=== PATIENT | female | born 1940 | race Caucasian/White ===

== ENCOUNTER 2017-10-11 11:31 | Inpatient (IN) | payer MEDICARE, OTHER ==
[~2017-10-11] VITALS: Ht 162.6 cm; Wt 87.1 kg
[2017-10-11] MEDS ORDERED: TOBRAMYCIN IV (11:56)
[2017-10-11 12:12] LABS: ABG BASE EXCESS 1.2 mmol/L; ABG HCO3 25.8 mmol/L; ABG PCO2 41.2 mmHg (35.0-45.0); ABG PH 7.415 (7.350-7.450); ABG PO2 166.7 mmHg (75.0-100.0); ABG SITE RIGHT RADIAL; ABG TOTAL HEMOGLOBIN 10.7 G/dL (12.0-16.0); COHb 0.7 % (0.5-1.5); MetHb 0.4 % (0.0-1.5); O2Hb 98.5 % (94.0-97.0); VENT MODE VENT - A/C; VT, ABG 550 mL
[2017-10-11] MEDS ORDERED: ZINC220C8 GT (12:13)
[2017-10-11] MEDS ORDERED: NA P133E RC (12:13)
[2017-10-11] MEDS ORDERED: DOCU-141 GT (12:13)
[2017-10-11] MEDS ORDERED: ATOR20TA GT (12:13)
[2017-10-11] MEDS ORDERED: LORA-258 GT (12:13)
[2017-10-11] MEDS ORDERED: MULT-213 GT (12:13)
[2017-10-11] MEDS ORDERED: FERR220S6 GT (12:13)
[2017-10-11] MEDS ORDERED: LEVO25TA9 GT (12:13)
[2017-10-11] MEDS ORDERED: POTA10TA15 GT (12:13)
[2017-10-11] MEDS ORDERED: ACET-2154 GT ×2 (12:13)
[2017-10-11] MEDS ORDERED: PRIM250T GT (12:13)
[2017-10-11] MEDS ORDERED: ACET-2605 GT (12:13)
[2017-10-11] MEDS ORDERED: DULCOLAX PR (12:13)
[2017-10-11] MEDS ORDERED: APIX2.5T GT (12:13)
[2017-10-11] MEDS ORDERED: ALLO100T GT (12:13)
[2017-10-11] MEDS ORDERED: PRAM0.253 GT (12:13)
[2017-10-11] MEDS ORDERED: MAGN400O6 GT (12:13)
[2017-10-11] MEDS ORDERED: LOSA25TA13 GT (12:13)
[2017-10-11] MEDS ORDERED: CRAN3875 GT (12:13)
[2017-10-11] MEDS ORDERED: ASCO500C16 GT (12:13)
[2017-10-11] MEDS ORDERED: MONT10TA22 GT (12:13)
[2017-10-11] MEDS ORDERED: HYDR-4075 GT (12:13)
[2017-10-11] MEDS ORDERED: LAMO100T GT (12:13)
[2017-10-11] MEDS ORDERED: HYDR-3326 GT (12:13)
[2017-10-11] MEDS ORDERED: ASPI81TA31 GT (12:13)
[2017-10-11] MEDS ORDERED: ALBUTEROL SULFATE 2.5 MG/3 ML NEBU NEB ONE (12:45)
[2017-10-11 12:46] LABS: CARBON DIOXIDE 29 mmol/L (21-32); CHLORIDE 103 mmol/L (98-107); CREATININE 0.9 mg/dL (0.6-1.3); GLUCOSE 173 mg/dL (74-106); POTASSIUM 4.1 mmol/L (3.5-5.1); UREA NITROGEN, BLOOD 16 mg/dL (7-18)
[2017-10-11 12:56] LABS: ALANINE AMINOTRANSFERASE 20 U/L (14-59); ALKALINE PHOSPHATASE 216 U/L (50-136); ASPARTATE AMINOTRANSFERASE 17 U/L (15-37); BILIRUBIN,DIRECT 0.1 mg/dL (0.0-0.2); BILIRUBIN,TOTAL 0.2 mg/dL (0.2-1.0); TOTAL PROTEIN, SERUM 6.1 g/dL (6.4-8.2)
[2017-10-11] MEDS ORDERED: ALBUTEROL SULFATE 2.5 MG/3 ML NEBU ONE (13:10)
[2017-10-11 13:12] LABS: BASOPHILS # (AUTO) 0.1 K/uL (0.0-8.0); BASOPHILS % (AUTO) 0.4 % (0.0-2.0); EOSINOPHILS % (AUTO) 0.2 % (0.0-7.0); HEMATOCRIT 30.2 % (31.2-41.9); HEMOGLOBIN 9.7 g/dL (10.9-14.3); LYMPHOCYTES # (AUTO) 0.3 K/uL (20.0-40.0); LYMPHOCYTES % (AUTO) 2.1 % (20.5-51.5); MEAN CORPUSCULAR HEMOGLOBIN 31.1 uug (24.7-32.8); MEAN CORPUSCULAR HGB CONC 32 g/dL (32.3-35.6); MEAN CORPUSCULAR VOLUME 96.4 fL (75.5-95.3); MONOCYTES # (AUTO) 0.5 K/uL (2.0-10.0); MONOCYTES % (AUTO) 3.2 % (0.0-11.0); NEUTROPHILS # (AUTO) 13.6 K/uL (1.8-8.9); NEUTROPHILS % (AUTO) 94.1 % (38.5-71.5); PLATELET COUNT (AUTO) 342 K/uL (179-408); RED BLOOD CELL COUNT(AUTO) 3.14 MIL/uL (3.63-4.92); WHITE BLOOD COUNT (AUTO) 14.4 K/uL (3.8-11.8)
[2017-10-11 14:04] LABS: *BILIRUBIN,URIN NEGATIVE (NEGATIVE); *BLOOD, URINE NEGATIVE (NEGATIVE); *COLOR,URINE YELLOW (YELLOW); *KETONES,URINE TRACE (NEGATIVE); *PROTEIN,URINE 2+ (NEGATIVE); *UROBILINOGEN,URINE 0.2 E.U./dl (NORMAL); LEUKOCYTE ESTERASE ,URINE NEGATIVE (NEGATIVE); NITRITE, URINE NEGATIVE (NEGATIVE); PH,URINE 5.5 (5.0-8.0); UGLUCOSE NEGATIVE (NEGATIVE)
[2017-10-11 14:52] LABS: *CLARITY,URINE CLOUDY (CLEAR)
[2017-10-11 14:54] LABS: BACTERIA,URINE NONE SEEN /HPF (NONE SEEN); SQUAMOUS EPITHELIAL CELL,UR MANY /HPF (NONE SEEN)
[2017-10-11] MEDS ORDERED: IV NORMAL SALINE 500 ML BAG IV ONE (16:15)
[2017-10-11] MEDS ORDERED: FLEET ENEMA 133 ML BOTTLE RC PRN (18:15)
[2017-10-11] MEDS ORDERED: hydrALAZINE HCL 10 MG TABLET GT PRN (18:15)
[2017-10-11] MEDS ORDERED: MAGNESIUM HYDROXIDE 30 ML LIQUID UDC GT PRN (18:15)
[2017-10-11] MEDS ORDERED: ACETAMINOPHEN 325 MG TABLET GT PRN (18:15)
[2017-10-11] MEDS: PRAMIPEXOLE 0.25 MG TABLET GT SCH (21:00)
[2017-10-11] MEDS: PRIMIDONE 250 MG TABLET GT SCH (21:00)
[2017-10-11 23:00] VITALS: BP 143/99
[2017-10-11] MEDS: FUROSEMIDE 20 MG/2 ML VIAL IV SCH (23:29)
[2017-10-11] MEDS: LORAZEPAM 0.5 MG TABLET GT PRN (23:29)
[2017-10-11] MEDS: ATORVASTATIN 20 MG TABLET GT SCH (23:29)
[2017-10-11] MEDS: HYDROCODONE/APAP 5-325MG TABLET GT PRN (23:30)
[2017-10-11] MEDS ORDERED: LORAZEPAM 0.5 MG TABLET ONE (23:41)
[2017-10-11] MEDS ORDERED: HYDROCODONE/APAP 5-325MG TABLET ONE (23:41)
[2017-10-11] MEDS ORDERED: FUROSEMIDE 20 MG/2 ML VIAL ONE (23:43)
[2017-10-11] MEDS ORDERED: ATORVASTATIN 20 MG TABLET ONE (23:44)
[2017-10-12] VITALS (14 sets, daily range): BP systolic 77–151; BP diastolic 37–120
[2017-10-12 05:32] LABS: BASOPHILS % (AUTO) 0.5 % (0.0-2.0); EOSINOPHILS # (AUTO) 0.2 K/uL (0.0-0.7); HEMATOCRIT 28.2 % (31.2-41.9); HEMOGLOBIN 9.2 g/dL (10.9-14.3); LYMPHOCYTES # (AUTO) 0.9 K/uL (20.0-40.0); LYMPHOCYTES % (AUTO) 10.1 % (20.5-51.5); MEAN CORPUSCULAR HEMOGLOBIN 31.5 uug (24.7-32.8); MEAN CORPUSCULAR HGB CONC 33 g/dL (32.3-35.6); MEAN CORPUSCULAR VOLUME 96.5 fL (75.5-95.3); MONOCYTES # (AUTO) 0.5 K/uL (2.0-10.0); MONOCYTES % (AUTO) 6.2 % (0.0-11.0); NEUTROPHILS # (AUTO) 7.1 K/uL (1.8-8.9); NEUTROPHILS % (AUTO) 81.2 % (38.5-71.5); PLATELET COUNT (AUTO) 310 K/uL (179-408); RED BLOOD CELL COUNT(AUTO) 2.92 MIL/uL (3.63-4.92); WHITE BLOOD COUNT (AUTO) 8.8 K/uL (3.8-11.8)
[2017-10-12 05:38] LABS: IRON, SERUM 29 ug/dL (50-175)
[2017-10-12 06:03] LABS: ALANINE AMINOTRANSFERASE 17 U/L (14-59); ALKALINE PHOSPHATASE 188 U/L (50-136); ASPARTATE AMINOTRANSFERASE 20 U/L (15-37); BILIRUBIN,TOTAL 0.3 mg/dL (0.2-1.0); CARBON DIOXIDE 28 mmol/L (21-32); CHLORIDE 105 mmol/L (98-107); CHOLESTEROL 152 mg/dL (<200); CREATININE 0.6 mg/dL (0.6-1.3); GLUCOSE 87 mg/dL (74-106); HDL CHOLESTEROL 81 mg/dL (40-60); MAGNESIUM 1.8 mg/dL (1.8-2.4); PHOSPHOROUS 3.3 mg/dL (2.5-4.9); POTASSIUM 3.5 mmol/L (3.5-5.1); TOTAL PROTEIN, SERUM 5.8 g/dL (6.4-8.2); TRIGLYCERIDES 63 MG/DL (30-150); UREA NITROGEN, BLOOD 13 mg/dL (7-18)
[2017-10-12] MEDS: HYDROCODONE/APAP 5-325MG TABLET GT PRN ×4 (07:55→17:19)
[2017-10-12] MEDS ORDERED: DOCUSATE SODIUM 100 MG CAPSULE PO SCH (09:00)
[2017-10-12] MEDS ORDERED: Medication Not On Formulary EA (Apixaban (Eliquis) 2.5 MG) GT SCH (09:00)
[2017-10-12] MEDS ORDERED: Medication Not On Formulary EA (Multivitamins W-Minerals (Multivitamin With Minerals) 1 GT SCH (09:00)
[2017-10-12] MEDS ORDERED: Medication Not On Formulary EA (Ascorbic Acid (Vitamin C CAPSULE) 500 MG) GT SCH (09:00)
[2017-10-12] MEDS: DOCUSATE SODIUM 100 MG/10 ML LIQUID UDC GT SCH (09:26)
[2017-10-12] MEDS: ALLOPURINOL 100 MG TABLET GT SCH (09:26)
[2017-10-12] MEDS: LEVOTHYROXINE SODIUM 25 MCG TABLET GT SCH (09:26)
[2017-10-12] MEDS: MULTIVIT, IRON, MIN NO. 8, FA TABLET PO SCH (09:26)
[2017-10-12] MEDS: POTASSIUM CHLORIDE 20 MEQ POWDER PACKET GT SCH (09:26)
[2017-10-12] MEDS: ASCORBIC ACID 500 MG TABLET PO SCH (09:26)
[2017-10-12] MEDS: FERROUS SULFATE 300 MG/5 ML LIQUID UDC GT SCH (09:26)
[2017-10-12] MEDS: ZINC SULFATE 220 MG CAPSULE GT SCH (09:26)
[2017-10-12] MEDS: ASPIRIN 81 MG TAB.CHEW GT SCH (09:26)
[2017-10-12] MEDS: LAMOTRIGINE 100 MG TABLET GT SCH (09:39)
[2017-10-12] MEDS: LOSARTAN POTASSIUM 25 MG TABLET GT SCH (09:39)
[2017-10-12] MEDS: FUROSEMIDE 20 MG/2 ML VIAL IV SCH ×2 (10:37→21:42)
[2017-10-12] MEDS: ALBUTEROL SULFATE 2.5 MG/3 ML NEBU NEB PRN (11:20)
[2017-10-12] MEDS ORDERED: POTASSIUM CHLORIDE 20 MEQ POWDER PACKET GT ONE (12:00)
[2017-10-12] MEDS: APIXABAN 5 MG TABLET PO SCH ×2 (17:00→17:21)
[2017-10-12] MEDS: ACETAMINOPHEN 325 MG TABLET GT SCH (17:18)
[2017-10-12] MEDS: MONTELUKAST SODIUM 10 MG TABLET GT SCH (17:18)
[2017-10-12] MEDS: ATORVASTATIN 20 MG TABLET GT SCH (21:41)
[2017-10-12] MEDS: PRIMIDONE 250 MG TABLET GT SCH (21:41)
[2017-10-12] MEDS: PRAMIPEXOLE 0.25 MG TABLET GT SCH (21:41)
[2017-10-13] VITALS: BP 116/52
[2017-10-13 04:00] VITALS: BP 141/73
[2017-10-13] MEDS: LEVOTHYROXINE SODIUM 25 MCG TABLET GT SCH (06:37)
[2017-10-13 06:48] LABS: BASOPHILS % (AUTO) 0.3 % (0.0-2.0); EOSINOPHILS # (AUTO) 0.1 K/uL (0.0-0.7); EOSINOPHILS % (AUTO) 0.5 % (0.0-7.0); HEMATOCRIT 26.5 % (31.2-41.9); HEMOGLOBIN 8.6 g/dL (10.9-14.3); LYMPHOCYTES # (AUTO) 0.5 K/uL (20.0-40.0); LYMPHOCYTES % (AUTO) 3.3 % (20.5-51.5); MEAN CORPUSCULAR HEMOGLOBIN 31.2 uug (24.7-32.8); MEAN CORPUSCULAR HGB CONC 33 g/dL (32.3-35.6); MEAN CORPUSCULAR VOLUME 95.8 fL (75.5-95.3); MONOCYTES # (AUTO) 0.8 K/uL (2.0-10.0); MONOCYTES % (AUTO) 5.4 % (0.0-11.0); NEUTROPHILS # (AUTO) 13.7 K/uL (1.8-8.9); NEUTROPHILS % (AUTO) 90.5 % (38.5-71.5); PLATELET COUNT (AUTO) 311 K/uL (179-408); RED BLOOD CELL COUNT(AUTO) 2.76 MIL/uL (3.63-4.92); WHITE BLOOD COUNT (AUTO) 15.1 K/uL (3.8-11.8)
[2017-10-13 07:20] LABS: ALANINE AMINOTRANSFERASE 20 U/L (14-59); ALKALINE PHOSPHATASE 186 U/L (50-136); ASPARTATE AMINOTRANSFERASE 17 U/L (15-37); BILIRUBIN,TOTAL 0.4 mg/dL (0.2-1.0); CARBON DIOXIDE 27 mmol/L (21-32); CHLORIDE 105 mmol/L (98-107); CREATININE 0.6 mg/dL (0.6-1.3); GLUCOSE 80 mg/dL (74-106); MAGNESIUM 1.8 mg/dL (1.8-2.4); PHOSPHOROUS 2.9 mg/dL (2.5-4.9); POTASSIUM 3.7 mmol/L (3.5-5.1); TOTAL PROTEIN, SERUM 5.7 g/dL (6.4-8.2); UREA NITROGEN, BLOOD 13 mg/dL (7-18)
[2017-10-13] MEDS: ASPIRIN 81 MG TAB.CHEW GT SCH (08:13)
[2017-10-13] MEDS: ACETAMINOPHEN 325 MG TABLET GT SCH (08:13)
[2017-10-13] MEDS: MULTIVIT, IRON, MIN NO. 8, FA TABLET PO SCH (08:13)
[2017-10-13] MEDS: POTASSIUM CHLORIDE 20 MEQ POWDER PACKET GT SCH (08:13)
[2017-10-13] MEDS: FUROSEMIDE 20 MG/2 ML VIAL IV SCH ×2 (08:13→21:14)
[2017-10-13] MEDS: DOCUSATE SODIUM 100 MG/10 ML LIQUID UDC GT SCH (08:14)
[2017-10-13] MEDS: ZINC SULFATE 220 MG CAPSULE GT SCH (08:14)
[2017-10-13] MEDS: LAMOTRIGINE 100 MG TABLET GT SCH (08:14)
[2017-10-13] MEDS: FERROUS SULFATE 300 MG/5 ML LIQUID UDC GT SCH (08:14)
[2017-10-13] MEDS: LOSARTAN POTASSIUM 25 MG TABLET GT SCH (08:14)
[2017-10-13] MEDS: ALLOPURINOL 100 MG TABLET GT SCH (08:14)
[2017-10-13] MEDS: ASCORBIC ACID 500 MG TABLET PO SCH (08:14)
[2017-10-13] MEDS: APIXABAN 5 MG TABLET PO SCH (08:16)
[2017-10-13] MEDS: FIBERSOURCE HN 1000ML LIQUID GT PRN (10:03)
[2017-10-13 11:35] VITALS: BP 145/87
[2017-10-13] MEDS: HYDROCODONE/APAP 5-325MG TABLET GT PRN ×2 (12:18→21:15)
[2017-10-13 15:22] VITALS: BP 126/75
[2017-10-13] MEDS: MONTELUKAST SODIUM 10 MG TABLET GT SCH (16:25)
[2017-10-13 20:00] VITALS: BP 102/51
[2017-10-13] MEDS: ATORVASTATIN 20 MG TABLET GT SCH (21:16)
[2017-10-13] MEDS: PRAMIPEXOLE 0.25 MG TABLET GT SCH (21:16)
[2017-10-13] MEDS: PRIMIDONE 250 MG TABLET GT SCH (21:16)
[2017-10-13] MEDS: MUPIROCIN 2% OINT 22 GM TUBE NS SCH (21:40)
[2017-10-13] MEDS: LORAZEPAM 0.5 MG TABLET GT PRN (22:28)
[2017-10-14 00:52] VITALS: BP 99/48
[2017-10-14 04:37] VITALS: BP 94/50
[2017-10-14] MEDS: HYDROCODONE/APAP 5-325MG TABLET GT PRN (05:53)
[2017-10-14] MEDS: LEVOTHYROXINE SODIUM 25 MCG TABLET GT SCH (06:35)
[2017-10-14 07:12] VITALS: BP 110/48
[2017-10-14 07:35] LABS: BASOPHILS % (AUTO) 0.4 % (0.0-2.0); EOSINOPHILS # (AUTO) 0.2 K/uL (0.0-0.7); EOSINOPHILS % (AUTO) 1.6 % (0.0-7.0); HEMATOCRIT 26.1 % (31.2-41.9); HEMOGLOBIN 8.6 g/dL (10.9-14.3); LYMPHOCYTES # (AUTO) 0.7 K/uL (20.0-40.0); LYMPHOCYTES % (AUTO) 5.3 % (20.5-51.5); MEAN CORPUSCULAR HEMOGLOBIN 31.5 uug (24.7-32.8); MEAN CORPUSCULAR HGB CONC 33 g/dL (32.3-35.6); MEAN CORPUSCULAR VOLUME 95.5 fL (75.5-95.3); MONOCYTES % (AUTO) 7.8 % (0.0-11.0); NEUTROPHILS # (AUTO) 10.6 K/uL (1.8-8.9); NEUTROPHILS % (AUTO) 84.9 % (38.5-71.5); PLATELET COUNT (AUTO) 310 K/uL (179-408); RED BLOOD CELL COUNT(AUTO) 2.73 MIL/uL (3.63-4.92); WHITE BLOOD COUNT (AUTO) 12.5 K/uL (3.8-11.8)
[2017-10-14 07:39] LABS: CARBON DIOXIDE 33 mmol/L (21-32); CHLORIDE 102 mmol/L (98-107); CREATININE 0.9 mg/dL (0.6-1.3); GLUCOSE 140 mg/dL (74-106); MAGNESIUM 1.9 mg/dL (1.8-2.4); PHOSPHOROUS 2.8 mg/dL (2.5-4.9); POTASSIUM 3.5 mmol/L (3.5-5.1); UREA NITROGEN, BLOOD 19 mg/dL (7-18)
[2017-10-14] MEDS: FERROUS SULFATE 300 MG/5 ML LIQUID UDC GT SCH (08:29)
[2017-10-14] MEDS: ASCORBIC ACID 500 MG TABLET PO SCH (08:30)
[2017-10-14] MEDS: POTASSIUM CHLORIDE 20 MEQ POWDER PACKET GT SCH (08:30)
[2017-10-14] MEDS: FUROSEMIDE 20 MG/2 ML VIAL IV SCH (08:30)
[2017-10-14] MEDS: LAMOTRIGINE 100 MG TABLET GT SCH (08:30)
[2017-10-14] MEDS: MULTIVIT, IRON, MIN NO. 8, FA TABLET PO SCH (08:30)
[2017-10-14] MEDS: DOCUSATE SODIUM 100 MG/10 ML LIQUID UDC GT SCH (08:30)
[2017-10-14] MEDS: ACETAMINOPHEN 325 MG TABLET GT SCH (08:31)
[2017-10-14] MEDS: ZINC SULFATE 220 MG CAPSULE GT SCH (08:31)
[2017-10-14] MEDS: LOSARTAN POTASSIUM 25 MG TABLET GT SCH (08:31)
[2017-10-14] MEDS: ALLOPURINOL 100 MG TABLET GT SCH (08:31)
[2017-10-14] MEDS: MUPIROCIN 2% OINT 22 GM TUBE NS SCH ×2 (08:33→21:00)
[2017-10-14 11:07] VITALS: BP 102/44
[2017-10-14 15:09] VITALS: BP 114/46
[2017-10-14] MEDS: MONTELUKAST SODIUM 10 MG TABLET GT SCH (17:15)
[2017-10-14] MEDS: FIBERSOURCE HN 1000ML LIQUID GT PRN (19:00)
[2017-10-14 20:00] VITALS: BP 119/51
[2017-10-14] MEDS: PRIMIDONE 250 MG TABLET GT SCH (21:00)
[2017-10-14] MEDS: ACETAMINOPHEN 650 MG/20.3 ML LIQUID UDC PO PRN (21:00)
[2017-10-14] MEDS: ATORVASTATIN 20 MG TABLET GT SCH (21:00)
[2017-10-14] MEDS: PRAMIPEXOLE 0.25 MG TABLET GT SCH (21:00)
[2017-10-15] VITALS: BP 103/47
[2017-10-15] MEDS: HYDROCODONE/APAP 5-325MG TABLET GT PRN ×2 (01:40→14:30)
[2017-10-15] MEDS: LORAZEPAM 0.5 MG TABLET GT PRN (01:40)
[2017-10-15 04:00] VITALS: BP 113/43
[2017-10-15] MEDS: LEVOTHYROXINE SODIUM 25 MCG TABLET GT SCH (06:55)
[2017-10-15 08:00] VITALS: BP 110/53
[2017-10-15] MEDS: DOCUSATE SODIUM 100 MG/10 ML LIQUID UDC GT SCH (09:14)
[2017-10-15] MEDS: POTASSIUM CHLORIDE 20 MEQ POWDER PACKET GT SCH (09:15)
[2017-10-15] MEDS: ALLOPURINOL 100 MG TABLET GT SCH (09:15)
[2017-10-15] MEDS: ASCORBIC ACID 500 MG TABLET PO SCH (09:15)
[2017-10-15] MEDS: LAMOTRIGINE 100 MG TABLET GT SCH (09:15)
[2017-10-15] MEDS: LOSARTAN POTASSIUM 25 MG TABLET GT SCH (09:15)
[2017-10-15] MEDS: ZINC SULFATE 220 MG CAPSULE GT SCH (09:15)
[2017-10-15] MEDS: ACETAMINOPHEN 325 MG TABLET GT SCH (09:15)
[2017-10-15] MEDS: MULTIVIT, IRON, MIN NO. 8, FA TABLET PO SCH (09:15)
[2017-10-15] MEDS: FERROUS SULFATE 300 MG/5 ML LIQUID UDC GT SCH (09:15)
[2017-10-15] MEDS: MUPIROCIN 2% OINT 22 GM TUBE NS SCH ×2 (10:02→21:54)
[2017-10-15 11:05] VITALS: BP 109/61
[2017-10-15 12:48] LABS: BASOPHILS % (AUTO) 0.5 % (0.0-2.0); EOSINOPHILS # (AUTO) 0.1 K/uL (0.0-0.7); EOSINOPHILS % (AUTO) 1.6 % (0.0-7.0); HEMATOCRIT 24.2 % (31.2-41.9); HEMOGLOBIN 8.2 g/dL (10.9-14.3); LYMPHOCYTES # (AUTO) 0.4 K/uL (20.0-40.0); LYMPHOCYTES % (AUTO) 4.3 % (20.5-51.5); MEAN CORPUSCULAR HEMOGLOBIN 32.3 uug (24.7-32.8); MEAN CORPUSCULAR HGB CONC 34 g/dL (32.3-35.6); MEAN CORPUSCULAR VOLUME 95.9 fL (75.5-95.3); MONOCYTES # (AUTO) 0.6 K/uL (2.0-10.0); MONOCYTES % (AUTO) 6.9 % (0.0-11.0); NEUTROPHILS # (AUTO) 7.2 K/uL (1.8-8.9); NEUTROPHILS % (AUTO) 86.7 % (38.5-71.5); PLATELET COUNT (AUTO) 304 K/uL (179-408); RED BLOOD CELL COUNT(AUTO) 2.52 MIL/uL (3.63-4.92); WHITE BLOOD COUNT (AUTO) 8.4 K/uL (3.8-11.8)
[2017-10-15 15:18] VITALS: BP 94/74
[2017-10-15] MEDS: MEROPENEM 1 G in IV NORMAL SALINE 100 ML IV SCH ×2 (16:01→21:55)
[2017-10-15] MEDS: MONTELUKAST SODIUM 10 MG TABLET GT SCH (17:29)
[2017-10-15 19:39] LABS: *BILIRUBIN,URIN NEGATIVE (NEGATIVE); *BLOOD, URINE 2+ (NEGATIVE); *CLARITY,URINE CLOUDY (CLEAR); *COLOR,URINE YELLOW (YELLOW); *KETONES,URINE TRACE (NEGATIVE); *PROTEIN,URINE 2+ (NEGATIVE); LEUKOCYTE ESTERASE ,URINE 2+ (NEGATIVE); NITRITE, URINE NEGATIVE (NEGATIVE); PH,URINE 7.5 (5.0-8.0); UGLUCOSE NEGATIVE (NEGATIVE)
[2017-10-15 20:00] VITALS: BP 95/45
[2017-10-15] MEDS: PRIMIDONE 250 MG TABLET GT SCH (21:54)
[2017-10-15] MEDS: ATORVASTATIN 20 MG TABLET GT SCH (21:54)
[2017-10-15] MEDS: PRAMIPEXOLE 0.25 MG TABLET GT SCH (21:54)
[2017-10-15] MEDS: ALBUTEROL SULFATE 2.5 MG/3 ML NEBU NEB PRN (22:00)
[2017-10-15 22:20] LABS: RBC,URINE 20-50 /HPF (0-3)
[2017-10-15 22:21] LABS: BACTERIA,URINE MANY /HPF (NONE SEEN); SQUAMOUS EPITHELIAL CELL,UR MODERATE /HPF (NONE SEEN); WBC,URINE 80-100 /HPF (0-3)
[2017-10-16] VITALS: BP 78/33
[2017-10-16] MEDS ORDERED: IV NORMAL SALINE 500 ML IV ONE (01:45)
[2017-10-16 04:00] VITALS: BP 88/40
[2017-10-16] MEDS: LORAZEPAM 0.5 MG TABLET GT PRN (05:40)
[2017-10-16] MEDS: LEVOTHYROXINE SODIUM 25 MCG TABLET GT SCH (05:40)
[2017-10-16] MEDS: MEROPENEM 1 G in IV NORMAL SALINE 100 ML IV SCH ×3 (05:40→21:12)
[2017-10-16 06:39] LABS: CARBON DIOXIDE 30 mmol/L (21-32); CHLORIDE 101 mmol/L (98-107); CREATININE 0.9 mg/dL (0.6-1.3); GLUCOSE 115 mg/dL (74-106); PHOSPHOROUS 3.5 mg/dL (2.5-4.9); POTASSIUM 3.8 mmol/L (3.5-5.1); UREA NITROGEN, BLOOD 21 mg/dL (7-18)
[2017-10-16 06:54] LABS: BASOPHILS # (AUTO) 0.1 K/uL (0.0-8.0); BASOPHILS % (AUTO) 0.9 % (0.0-2.0); EOSINOPHILS # (AUTO) 0.3 K/uL (0.0-0.7); EOSINOPHILS % (AUTO) 3.6 % (0.0-7.0); HEMATOCRIT 27.3 % (31.2-41.9); HEMOGLOBIN 8.9 g/dL (10.9-14.3); LYMPHOCYTES # (AUTO) 0.8 K/uL (20.0-40.0); LYMPHOCYTES % (AUTO) 11.5 % (20.5-51.5); MEAN CORPUSCULAR HEMOGLOBIN 31.6 uug (24.7-32.8); MEAN CORPUSCULAR HGB CONC 33 g/dL (32.3-35.6); MEAN CORPUSCULAR VOLUME 96.5 fL (75.5-95.3); MONOCYTES # (AUTO) 0.9 K/uL (2.0-10.0); MONOCYTES % (AUTO) 11.9 % (0.0-11.0); NEUTROPHILS # (AUTO) 5.2 K/uL (1.8-8.9); NEUTROPHILS % (AUTO) 72.1 % (38.5-71.5); PLATELET COUNT (AUTO) 339 K/uL (179-408); RED BLOOD CELL COUNT(AUTO) 2.83 MIL/uL (3.63-4.92); WHITE BLOOD COUNT (AUTO) 7.3 K/uL (3.8-11.8)
[2017-10-16] MEDS: LOSARTAN POTASSIUM 25 MG TABLET GT SCH (08:44)
[2017-10-16] MEDS: ACETAMINOPHEN 325 MG TABLET GT SCH (08:45)
[2017-10-16] MEDS: DOCUSATE SODIUM 100 MG/10 ML LIQUID UDC GT SCH (09:01)
[2017-10-16] MEDS: LAMOTRIGINE 100 MG TABLET GT SCH (09:01)
[2017-10-16] MEDS: ASCORBIC ACID 500 MG TABLET PO SCH (09:01)
[2017-10-16] MEDS: FERROUS SULFATE 300 MG/5 ML LIQUID UDC GT SCH (09:01)
[2017-10-16] MEDS: ZINC SULFATE 220 MG CAPSULE GT SCH (09:01)
[2017-10-16] MEDS: MUPIROCIN 2% OINT 22 GM TUBE NS SCH ×2 (09:01→20:27)
[2017-10-16] MEDS: POTASSIUM CHLORIDE 20 MEQ POWDER PACKET GT SCH (09:01)
[2017-10-16] MEDS: ALLOPURINOL 100 MG TABLET GT SCH (09:02)
[2017-10-16] MEDS: MULTIVIT, IRON, MIN NO. 8, FA TABLET PO SCH (09:02)
[2017-10-16 11:05] VITALS: BP 87/45
[2017-10-16] MEDS ORDERED: diphenhydrAMINE 25 MG/10 ML UDC GT ONE (13:00)
[2017-10-16] MEDS: FIBERSOURCE HN 1000ML LIQUID GT PRN (14:26)
[2017-10-16 15:14] VITALS: BP 96/44
[2017-10-16] MEDS: MONTELUKAST SODIUM 10 MG TABLET GT SCH (18:30)
[2017-10-16 20:00] VITALS: BP_SYST 136; BP_SYST 96; BP_DIAS 31; BP_DIAS 52
[2017-10-16] MEDS: PRAMIPEXOLE 0.25 MG TABLET GT SCH (20:51)
[2017-10-16] MEDS: ATORVASTATIN 20 MG TABLET GT SCH (20:51)
[2017-10-16] MEDS: PRIMIDONE 250 MG TABLET GT SCH (20:52)
[2017-10-16] MEDS: ACETAMINOPHEN 650 MG/20.3 ML LIQUID UDC PO PRN (20:55)
[2017-10-17] VITALS: BP_SYST 136; BP_SYST 96; BP_DIAS 31; BP_DIAS 52
[2017-10-17] MEDS: IV NS 1000 ML 1,000 ML IV PRN ×2 (01:35→15:11)
[2017-10-17 05:00] VITALS: BP 99/46
[2017-10-17] MEDS: MEROPENEM 1 G in IV NORMAL SALINE 100 ML IV SCH ×3 (06:41→21:57)
[2017-10-17] MEDS: LEVOTHYROXINE SODIUM 25 MCG TABLET GT SCH (06:41)
[2017-10-17 07:30] LABS: BASOPHILS # (AUTO) 0.1 K/uL (0.0-8.0); BASOPHILS % (AUTO) 1.3 % (0.0-2.0); CARBON DIOXIDE 30 mmol/L (21-32); CHLORIDE 102 mmol/L (98-107); CREATININE 0.7 mg/dL (0.6-1.3); EOSINOPHILS # (AUTO) 0.3 K/uL (0.0-0.7); EOSINOPHILS % (AUTO) 6.2 % (0.0-7.0); GLUCOSE 116 mg/dL (74-106); HEMATOCRIT 25.8 % (31.2-41.9); HEMOGLOBIN 8.4 g/dL (10.9-14.3); LYMPHOCYTES # (AUTO) 0.6 K/uL (20.0-40.0); LYMPHOCYTES % (AUTO) 11.1 % (20.5-51.5); MAGNESIUM 2.2 mg/dL (1.8-2.4); MEAN CORPUSCULAR HEMOGLOBIN 31.4 uug (24.7-32.8); MEAN CORPUSCULAR HGB CONC 33 g/dL (32.3-35.6); MEAN CORPUSCULAR VOLUME 96.4 fL (75.5-95.3); MONOCYTES # (AUTO) 0.7 K/uL (2.0-10.0); MONOCYTES % (AUTO) 12.7 % (0.0-11.0); NEUTROPHILS # (AUTO) 3.9 K/uL (1.8-8.9); NEUTROPHILS % (AUTO) 68.7 % (38.5-71.5); PHOSPHOROUS 3.1 mg/dL (2.5-4.9); PLATELET COUNT (AUTO) 325 K/uL (179-408); POTASSIUM 3.6 mmol/L (3.5-5.1); RED BLOOD CELL COUNT(AUTO) 2.68 MIL/uL (3.63-4.92); UREA NITROGEN, BLOOD 19 mg/dL (7-18); WHITE BLOOD COUNT (AUTO) 5.6 K/uL (3.8-11.8)
[2017-10-17 08:00] VITALS: BP 101/39
[2017-10-17] MEDS: FERROUS SULFATE 300 MG/5 ML LIQUID UDC GT SCH (09:13)
[2017-10-17] MEDS: DOCUSATE SODIUM 100 MG/10 ML LIQUID UDC GT SCH (09:13)
[2017-10-17] MEDS: ASCORBIC ACID 500 MG TABLET PO SCH (09:13)
[2017-10-17] MEDS: POTASSIUM CHLORIDE 20 MEQ POWDER PACKET GT SCH (09:13)
[2017-10-17] MEDS: ZINC SULFATE 220 MG CAPSULE GT SCH (09:13)
[2017-10-17] MEDS: ALLOPURINOL 100 MG TABLET GT SCH (09:14)
[2017-10-17] MEDS: LAMOTRIGINE 100 MG TABLET GT SCH (09:14)
[2017-10-17] MEDS: ACETAMINOPHEN 325 MG TABLET GT SCH (09:14)
[2017-10-17] MEDS: MUPIROCIN 2% OINT 22 GM TUBE NS SCH ×2 (09:14→21:07)
[2017-10-17] MEDS: MULTIVIT, IRON, MIN NO. 8, FA TABLET PO SCH (09:14)
[2017-10-17 16:00] VITALS: BP 174/88
[2017-10-17] MEDS: MONTELUKAST SODIUM 10 MG TABLET GT SCH (17:06)
[2017-10-17 20:00] VITALS: BP 150/69
[2017-10-17] MEDS: ATORVASTATIN 20 MG TABLET GT SCH (21:06)
[2017-10-17] MEDS: PRIMIDONE 250 MG TABLET GT SCH (21:06)
[2017-10-17] MEDS: LORAZEPAM 0.5 MG TABLET GT PRN (21:06)
[2017-10-17] MEDS: PRAMIPEXOLE 0.25 MG TABLET GT SCH (21:06)
[2017-10-17] MEDS: ALBUTEROL SULFATE 2.5 MG/3 ML NEBU NEB PRN (21:17)
[2017-10-18] VITALS: BP 97/82
[2017-10-18] MEDS: HYDROCODONE/APAP 5-325MG TABLET GT PRN
[2017-10-18] MEDS: ALBUTEROL SULFATE 2.5 MG/3 ML NEBU NEB PRN ×4 (03:03→19:46)
[2017-10-18 04:00] VITALS: BP 103/51
[2017-10-18] MEDS: IV NS 1000 ML 1,000 ML IV PRN ×2 (05:29→21:15)
[2017-10-18] MEDS: MEROPENEM 1 G in IV NORMAL SALINE 100 ML IV SCH ×3 (05:34→21:16)
[2017-10-18] MEDS: LEVOTHYROXINE SODIUM 25 MCG TABLET GT SCH (06:18)
[2017-10-18 07:37] VITALS: BP 131/78
[2017-10-18] MEDS: DOCUSATE SODIUM 100 MG/10 ML LIQUID UDC GT SCH (09:30)
[2017-10-18] MEDS: POTASSIUM CHLORIDE 20 MEQ POWDER PACKET GT SCH (09:31)
[2017-10-18] MEDS: ASCORBIC ACID 500 MG TABLET PO SCH (09:31)
[2017-10-18] MEDS: ZINC SULFATE 220 MG CAPSULE GT SCH (09:31)
[2017-10-18] MEDS: LAMOTRIGINE 100 MG TABLET GT SCH (09:31)
[2017-10-18] MEDS: ACETAMINOPHEN 325 MG TABLET GT SCH (09:31)
[2017-10-18] MEDS: MULTIVIT, IRON, MIN NO. 8, FA TABLET PO SCH (09:31)
[2017-10-18] MEDS: ALLOPURINOL 100 MG TABLET GT SCH (09:31)
[2017-10-18] MEDS: FERROUS SULFATE 300 MG/5 ML LIQUID UDC GT SCH (09:31)
[2017-10-18] MEDS: MUPIROCIN 2% OINT 22 GM TUBE NS SCH ×2 (09:33→21:00)
[2017-10-18 11:35] VITALS: BP 114/43
[2017-10-18] MEDS: FUROSEMIDE 40 MG/4 ML VIAL IV SCH (16:00)
[2017-10-18 16:05] VITALS: BP 150/73
[2017-10-18] MEDS: MONTELUKAST SODIUM 10 MG TABLET GT SCH (18:00)
[2017-10-18 19:00] VITALS: BP 133/41
[2017-10-18] MEDS: ATORVASTATIN 20 MG TABLET GT SCH (21:00)
[2017-10-18] MEDS: PRIMIDONE 250 MG TABLET GT SCH (21:00)
[2017-10-18] MEDS: PRAMIPEXOLE 0.25 MG TABLET GT SCH (21:13)
[2017-10-18] MEDS: LORAZEPAM 0.5 MG TABLET GT PRN (23:49)
[2017-10-18] MEDS: ACETAMINOPHEN 650 MG/20.3 ML LIQUID UDC PO PRN (23:50)
[2017-10-18] MEDS: FIBERSOURCE HN 1000ML LIQUID GT PRN (23:55)
[2017-10-19] VITALS: BP 107/49
[2017-10-19] MEDS: ALBUTEROL SULFATE 2.5 MG/3 ML NEBU NEB PRN (01:03)
[2017-10-19 04:00] VITALS: BP 101/37
[2017-10-19] MEDS: MEROPENEM 1 G in IV NORMAL SALINE 100 ML IV SCH ×3 (05:46→22:03)
[2017-10-19 07:03] LABS: CARBON DIOXIDE 31 mmol/L (21-32); CHLORIDE 103 mmol/L (98-107); CREATININE 0.7 mg/dL (0.6-1.3); GLUCOSE 125 mg/dL (74-106); MAGNESIUM 2.1 mg/dL (1.8-2.4); POTASSIUM 3.4 mmol/L (3.5-5.1); UREA NITROGEN, BLOOD 12 mg/dL (7-18)
[2017-10-19 07:05] LABS: BASOPHILS % (AUTO) 0.7 % (0.0-2.0); EOSINOPHILS # (AUTO) 0.2 K/uL (0.0-0.7); EOSINOPHILS % (AUTO) 2.9 % (0.0-7.0); HEMATOCRIT 23.5 % (31.2-41.9); HEMOGLOBIN 7.8 g/dL (10.9-14.3); LYMPHOCYTES # (AUTO) 0.5 K/uL (20.0-40.0); LYMPHOCYTES % (AUTO) 9.8 % (20.5-51.5); MEAN CORPUSCULAR HEMOGLOBIN 31.8 uug (24.7-32.8); MEAN CORPUSCULAR HGB CONC 33 g/dL (32.3-35.6); MONOCYTES # (AUTO) 0.6 K/uL (2.0-10.0); MONOCYTES % (AUTO) 12.6 % (0.0-11.0); NEUTROPHILS # (AUTO) 3.8 K/uL (1.8-8.9); PLATELET COUNT (AUTO) 282 K/uL (179-408); WHITE BLOOD COUNT (AUTO) 5.2 K/uL (3.8-11.8)
[2017-10-19] MEDS: LEVOTHYROXINE SODIUM 25 MCG TABLET GT SCH (07:05)
[2017-10-19 07:15] LABS: RED BLOOD CELL COUNT(AUTO) 2.44 MIL/uL (3.63-4.92)
[2017-10-19] MEDS: LAMOTRIGINE 100 MG TABLET GT SCH (08:48)
[2017-10-19] MEDS: MULTIVIT, IRON, MIN NO. 8, FA TABLET PO SCH (08:48)
[2017-10-19] MEDS: ASCORBIC ACID 500 MG TABLET PO SCH (08:48)
[2017-10-19] MEDS: ACETAMINOPHEN 325 MG TABLET GT SCH (08:48)
[2017-10-19] MEDS: POTASSIUM CHLORIDE 20 MEQ POWDER PACKET GT SCH (08:48)
[2017-10-19] MEDS: MUPIROCIN 2% OINT 22 GM TUBE NS SCH ×2 (08:49→20:55)
[2017-10-19] MEDS: ALLOPURINOL 100 MG TABLET GT SCH (08:49)
[2017-10-19] MEDS: FUROSEMIDE 40 MG/4 ML VIAL IV SCH (08:49)
[2017-10-19] MEDS: FERROUS SULFATE 300 MG/5 ML LIQUID UDC GT SCH (08:49)
[2017-10-19] MEDS: ZINC SULFATE 220 MG CAPSULE GT SCH (08:49)
[2017-10-19] MEDS: DOCUSATE SODIUM 100 MG/10 ML LIQUID UDC GT SCH (08:49)
[2017-10-19 11:14] VITALS: BP 113/54
[2017-10-19] MEDS: MICAFUNGIN SODIUM 100 MG in IV NORMAL SALINE 100 ML IV SCH (13:02)
[2017-10-19] MEDS: HYDROCODONE/APAP 5-325MG TABLET GT PRN ×2 (13:37→20:49)
[2017-10-19] MEDS ORDERED: POTASSIUM CHLORIDE 20 MEQ POWDER PACKET GT ONE (14:00)
[2017-10-19 15:31] VITALS: BP 97/52
[2017-10-19] MEDS: IV NS 1000 ML 1,000 ML IV PRN (16:36)
[2017-10-19] MEDS: MONTELUKAST SODIUM 10 MG TABLET GT SCH (17:00)
[2017-10-19 19:00] VITALS: BP 142/79
[2017-10-19] MEDS: ATORVASTATIN 20 MG TABLET GT SCH (20:48)
[2017-10-19] MEDS: PRAMIPEXOLE 0.25 MG TABLET GT SCH (20:48)
[2017-10-19] MEDS: PRIMIDONE 250 MG TABLET GT SCH (20:54)
[2017-10-19] MEDS ORDERED: NEUTRA PHOS PACKET PO ONE (22:15)
[2017-10-20] MEDS: LORAZEPAM 0.5 MG TABLET GT PRN ×2 (02:05→21:33)
[2017-10-20] MEDS: ACETAMINOPHEN 650 MG/20.3 ML LIQUID UDC PO PRN ×2 (02:07→21:33)
[2017-10-20] MEDS: ALBUTEROL SULFATE 2.5 MG/3 ML NEBU NEB PRN ×4 (02:22→23:37)
[2017-10-20 04:00] VITALS: BP 100/46
[2017-10-20] MEDS: MEROPENEM 1 G in IV NORMAL SALINE 100 ML IV SCH ×3 (05:22→21:33)
[2017-10-20 08:55] LABS: BASOPHILS # (AUTO) 0.1 K/uL (0.0-8.0); BASOPHILS % (AUTO) 0.7 % (0.0-2.0); EOSINOPHILS # (AUTO) 0.3 K/uL (0.0-0.7); EOSINOPHILS % (AUTO) 3.3 % (0.0-7.0); HEMATOCRIT 25.2 % (31.2-41.9); HEMOGLOBIN 8.4 g/dL (10.9-14.3); LYMPHOCYTES % (AUTO) 11.8 % (20.5-51.5); MEAN CORPUSCULAR HEMOGLOBIN 31.7 uug (24.7-32.8); MEAN CORPUSCULAR HGB CONC 33 g/dL (32.3-35.6); MEAN CORPUSCULAR VOLUME 94.9 fL (75.5-95.3); MONOCYTES # (AUTO) 0.8 K/uL (2.0-10.0); MONOCYTES % (AUTO) 10.1 % (0.0-11.0); NEUTROPHILS # (AUTO) 6.2 K/uL (1.8-8.9); NEUTROPHILS % (AUTO) 74.1 % (38.5-71.5); PLATELET COUNT (AUTO) 321 K/uL (179-408); RED BLOOD CELL COUNT(AUTO) 2.65 MIL/uL (3.63-4.92); WHITE BLOOD COUNT (AUTO) 8.3 K/uL (3.8-11.8)
[2017-10-20 09:17] LABS: CARBON DIOXIDE 30 mmol/L (21-32); CHLORIDE 101 mmol/L (98-107); CREATININE 0.7 mg/dL (0.6-1.3); GLUCOSE 109 mg/dL (74-106); PHOSPHOROUS 2.3 mg/dL (2.5-4.9); POTASSIUM 3.5 mmol/L (3.5-5.1); UREA NITROGEN, BLOOD 14 mg/dL (7-18)
[2017-10-20] MEDS: LEVOTHYROXINE SODIUM 25 MCG TABLET GT SCH (10:40)
[2017-10-20] MEDS: DOCUSATE SODIUM 100 MG/10 ML LIQUID UDC GT SCH (10:41)
[2017-10-20] MEDS: FERROUS SULFATE 300 MG/5 ML LIQUID UDC GT SCH (10:41)
[2017-10-20] MEDS: POTASSIUM CHLORIDE 20 MEQ POWDER PACKET GT SCH (10:42)
[2017-10-20] MEDS: ACETAMINOPHEN 325 MG TABLET GT SCH (10:42)
[2017-10-20] MEDS: LAMOTRIGINE 100 MG TABLET GT SCH (10:42)
[2017-10-20] MEDS: ALLOPURINOL 100 MG TABLET GT SCH (10:43)
[2017-10-20] MEDS: ZINC SULFATE 220 MG CAPSULE GT SCH (10:43)
[2017-10-20] MEDS: FUROSEMIDE 40 MG/4 ML VIAL IV SCH (10:43)
[2017-10-20] MEDS: MUPIROCIN 2% OINT 22 GM TUBE NS SCH (10:44)
[2017-10-20] MEDS: MULTIVIT, IRON, MIN NO. 8, FA TABLET PO SCH (10:44)
[2017-10-20] MEDS: ASCORBIC ACID 500 MG TABLET PO SCH (10:45)
[2017-10-20 11:03] VITALS: BP 141/62
[2017-10-20] MEDS ORDERED: POTASSIUM PHOSPHATE MM 7.5 MMOL in IV DEXTROSE 5% 100 ML IV ONE (11:45)
[2017-10-20] MEDS: MICAFUNGIN SODIUM 100 MG in IV NORMAL SALINE 100 ML IV SCH (13:18)
[2017-10-20] MEDS: HYDROCODONE/APAP 5-325MG TABLET GT PRN (13:18)
[2017-10-20] MEDS: IV NS 1000 ML 1,000 ML IV PRN (15:00)
[2017-10-20 15:13] VITALS: BP 102/46
[2017-10-20] MEDS: MONTELUKAST SODIUM 10 MG TABLET GT SCH (18:20)
[2017-10-20 20:00] VITALS: BP 97/56
[2017-10-20] MEDS: PRAMIPEXOLE 0.25 MG TABLET GT SCH (21:33)
[2017-10-20] MEDS: ATORVASTATIN 20 MG TABLET GT SCH (21:33)
[2017-10-20] MEDS: PRIMIDONE 250 MG TABLET GT SCH (21:46)
[2017-10-21] MEDS: HYDROCODONE/APAP 5-325MG TABLET GT PRN (00:10)
[2017-10-21 04:00] VITALS: BP 107/53
[2017-10-21] MEDS: ALBUTEROL SULFATE 2.5 MG/3 ML NEBU NEB PRN (04:18)
[2017-10-21] MEDS: LORAZEPAM 0.5 MG TABLET GT PRN (04:50)
[2017-10-21] MEDS: MEROPENEM 1 G in IV NORMAL SALINE 100 ML IV SCH (06:40)
[2017-10-21] MEDS: LEVOTHYROXINE SODIUM 25 MCG TABLET GT SCH (06:41)
[2017-10-21] MEDS: MULTIVIT, IRON, MIN NO. 8, FA TABLET PO SCH (08:49)
[2017-10-21] MEDS: LAMOTRIGINE 100 MG TABLET GT SCH (08:49)
[2017-10-21] MEDS: ALLOPURINOL 100 MG TABLET GT SCH (08:49)
[2017-10-21] MEDS: FUROSEMIDE 40 MG/4 ML VIAL IV SCH (08:49)
[2017-10-21] MEDS: ACETAMINOPHEN 325 MG TABLET GT SCH (08:49)
[2017-10-21] MEDS: ASCORBIC ACID 500 MG TABLET PO SCH (08:49)
[2017-10-21] MEDS: ZINC SULFATE 220 MG CAPSULE GT SCH (08:49)
[2017-10-21] MEDS: POTASSIUM CHLORIDE 20 MEQ POWDER PACKET GT SCH (08:50)
[2017-10-21] MEDS: FERROUS SULFATE 300 MG/5 ML LIQUID UDC GT SCH (08:50)
[2017-10-21] MEDS: DOCUSATE SODIUM 100 MG/10 ML LIQUID UDC GT SCH (08:50)
[2017-10-21 11:39] VITALS: BP 91/46
[2017-10-21] MEDS: IV NS 1000 ML 1,000 ML IV PRN (11:58)
[2017-10-21] MEDS: MICAFUNGIN SODIUM 100 MG in IV NORMAL SALINE 100 ML IV SCH (12:20)
== END 2017-10-21 13:15 | DRG 870 ==
LOC: ER 11:33 → CCU 21:58 → TELE-TD 10-12 19:53
PROVIDERS: ADMIT Internal Medicine; ATTEND Internal Medicine
PROC: 5A1955Z Respiratory Ventilation, Greater than 96 Consecutive Hours (ICD-10-PCS; principal; 2017-10-11)
PROC: 05H533Z Insertion of Infusion Device into Right Subclavian Vein, Percutaneous Approach (ICD-10-PCS; 2017-10-17)
DX: A41.9 Sepsis, unspecified organism (principal); I21.A1 Myocardial infarction type 2; J96.21 Acute and chronic respiratory failure with hypoxia; J18.9 Pneumonia, unspecified organism; I50.33 Acute on chronic diastolic (congestive) heart failure; Z99.11 Dependence on respirator [ventilator] status; B49 Unspecified mycosis; R53.2 Functional quadriplegia; D68.59 Other primary thrombophilia; G20 Parkinson's disease; J96.22 Acute and chronic respiratory failure with hypercapnia; N39.0 Urinary tract infection, site not specified; K92.2 Gastrointestinal hemorrhage, unspecified; J44.1 Chronic obstructive pulmonary disease with (acute) exacerbation; J44.0 Chronic obstructive pulmonary disease with (acute) lower respiratory infection; I48.0 Paroxysmal atrial fibrillation; I11.0 Hypertensive heart disease with heart failure; E66.01 Morbid (severe) obesity due to excess calories; E83.51 Hypocalcemia; R13.10 Dysphagia, unspecified; D63.8 Anemia in other chronic diseases classified elsewhere; E03.9 Hypothyroidism, unspecified; G40.909 Epilepsy, unspecified, not intractable, without status epilepticus; B96.20 Unspecified Escherichia coli [E. coli] as the cause of diseases classified elsewhere; Z16.12 Extended spectrum beta lactamase (ESBL) resistance; Z22.322 Carrier or suspected carrier of Methicillin resistant Staphylococcus aureus; Z22.39 Carrier of other specified bacterial diseases; Z68.33 Body mass index [BMI] 33.0-33.9, adult; M10.9 Gout, unspecified; E78.5 Hyperlipidemia, unspecified; Z79.01 Long term (current) use of anticoagulants; F01.50 Vascular dementia, unspecified severity, without behavioral disturbance, psychotic disturbance, mood disturbance, and anxiety; Z88.1 Allergy status to other antibiotic agents; Z87.01 Personal history of pneumonia (recurrent); I69.398 Other sequelae of cerebral infarction; Z93.1 Gastrostomy status; Z96.643 Presence of artificial hip joint, bilateral; Z93.0 Tracheostomy status; Z79.899 Other long term (current) drug therapy; Z79.82 Long term (current) use of aspirin; M19.90 Unspecified osteoarthritis, unspecified site; I25.10 Atherosclerotic heart disease of native coronary artery without angina pectoris
CPT/HCPCS: 36415; 36600; 70030-TC; 70450; 71045; 83550; 83605; 83735; 84100; 84443; 85025; 85730; 87040; 87070; 87077; 87086; 93005; 93307; 94002; 94003; 94640; A4663; J1940; J2185; J2248; J3490; J7030; J7060; Q0163